=== PATIENT | female | born 1985 | race Caucasian/White ===

== ENCOUNTER 2022-05-22 09:17 | Emergency (ER) | payer BC, SELFPAY ==
--- NOTE | 2022-05-22 09:23 | ED.URI ---
HPI - URI/Sore Throat General Chief Complaint: Upper Respiratory Infection Stated Complaint: Sore Throat,Headache Time Seen by Provider: 05/22/22 09:50 Source: patient Mode of arrival: ambulatory Limitations: no limitations History of Present Illness HPI Narrative: Gracie is a 36-year-old female patient presenting to the clinic today with complaints of sore throat and headache x1 day. She reports no known fever or chills. She denies any known exposure day will COVID, flu, or strep. She is 12 weeks . MD elicited complaint: sore throat, nasal congestion and other (Headache) Related Data Home Medications Medication Instructions Recorded Confirmed vits no.[id number]-ferrous fum 1 tablet PO DAILY 05/22/22 05/22/22 28 mg iron-folic acid 800 mcg tablet (Classic ) progesterone micronized 200 mg 200 mg PO DAILY 05/22/22 05/22/22 capsule Allergies Allergy/AdvReac Type Severity Reaction Status Date / Time amoxicillin AdvReac Mild Hives Verified 05/22/22 10:01 Review of Systems Review of Systems: Pertinent positives per HPI. Patient denies any fever, chills, rash, visual changes, dizziness, cough, shortness of breath, chest pain, palpitations, nausea, vomiting, diarrhea, constipation, abdominal pain, or any urinary issues. PMFSH Past Medical History Medical History Arachnoid cyst Cerebral Hypoesthesia Hypoglycemia Family History Family History Other Colon polyp Social History Social History Smoking status: Never smoker Alcohol intake: current Substance use: never Substance use type: does not use Living arrangements: with family Comments At the time of my signature, I reviewed and agree with the nursing past medical, surgical, social, and family history. There is no relevant family history pertinent to the patient complaint. Exam Narrative: General: Well-developed, well nourished, in no apparent distress Head: Normocephalic, atraumatic Eyes: Pupils equally round and reactive to light bilaterally, EOM intact, sclera and conjunctive clear, no discharge, lids normal Ears: TMs intact and clear, ear canals clear, no drainage, grossly hearing normal. Nose: Nares patent, clear discharge, no inflammation, no sinus tenderness. Mouth: Oral pharynx without lesions or masses, good dentition, MMM. Oropharynx mildly red Neck: Supple, trachea midline, no enlargement of anterior or posterior cervical nodes, no thyroid masses or goiter palpable. Cardio: Regular rate and rhythm, s1 and s2 normal, no murmur appreciated. Resp: Clear to auscultation bilaterally, no rhonchi, rales, wheezing or rubs Course Course Emergency Course: Portions of this record may have been created with voice recognition software. Level of Care: Express Care Visit Vital Signs Vital signs: Vital Signs Temperature 36.4 C L 05/22/22 09:48 Pulse Rate 61 05/22/22 09:48 Respiratory Rate 16 05/22/22 09:48 Blood Pressure 118/77 05/22/22 09:48 Pulse Oximetry 100 05/22/22 09:48 Oxygen Delivery Room Air 05/22/22 09:48 Temperature 36.4 C L 05/22/22 09:48 Pulse Rate 61 05/22/22 09:48 Respiratory Rate 16 05/22/22 09:48 Blood Pressure 118/77 05/22/22 09:48 Pulse Oximetry 100 05/22/22 09:48 Oxygen Delivery Room Air 05/22/22 09:48 Vital signs reviewed MDM - URI/Sore Throat MDM Narrative Medical decision making narrative: At the time of visit patient is resting comfortably on the exam table. Strep screen was obtained was negative in the clinic today. Supportive measures were discussed with the patient she voiced understanding discharge instructions and agrees to treatment plan. Will send off strep for culture. Differential Diagnosis Differential diagnosis: Likely upper respiratory infection, ot
[2022-05-22 09:48] VITALS: BP 118/77; PULSE 61; RESP 16; TEMP 36.4; O2SAT 100
== END 2022-05-22 10:15 | disposition home or self-care (01) ==
PROVIDERS: Emergency Provider Nurse Practitioner Family; PCP Nurse Practitioner Family
DX: O99.511 Diseases of the respiratory system complicating pregnancy, first trimester (principal); Z3A.12 12 weeks gestation of pregnancy; J02.9 Acute pharyngitis, unspecified; Z20.822 Contact with and (suspected) exposure to COVID-19
CPT/HCPCS: 87081; 87426; 87880; 99213; C9803; G0463